=== PATIENT | male | born 1960 | race African-American/Black ===

== ENCOUNTER 2022-08-01 10:35 | Day surgery (SDC) | payer OTHER ==
[~2022-08-01] VITALS: Ht 182.9 cm; Wt 129.3 kg
[2022-08-01] MEDS ORDERED: LIDOCAINE 2% 100 MG/5 ML UJET TP ONE (11:56)
[2022-08-01] MEDS ORDERED: fentaNYL citrate 0.05 MG/ML VIAL ONE (11:56)
[2022-08-01] MEDS ORDERED: fentaNYL citrate 0.05 MG/ML VIAL IVP ONE (13:10)
== END 2022-08-01 12:57 | disposition home or self-care (01) ==
LOC: MDS 10:35 → MMU 10:36 → MDS 12:57
PROVIDERS: ATTEND Internal Medicine Gastroenterology
DX: Z12.11 Encounter for screening for malignant neoplasm of colon (principal); D12.2 Benign neoplasm of ascending colon; D12.4 Benign neoplasm of descending colon; I10 Essential (primary) hypertension; E78.5 Hyperlipidemia, unspecified; E11.9 Type 2 diabetes mellitus without complications; Z87.891 Personal history of nicotine dependence; Z20.822 Contact with and (suspected) exposure to COVID-19; Z79.84 Long term (current) use of oral hypoglycemic drugs; Z79.899 Other long term (current) drug therapy
CPT/HCPCS: 45385; 87426; J3010

== ENCOUNTER 2023-09-25 06:10 | Day surgery (SDC) | payer OTHER ==
[~2023-09-25] VITALS: Ht 182.9 cm; Wt 129.3 kg
[2023-09-25] MEDS ORDERED: fentaNYL citrate 0.05 MG/ML VIAL ONE (08:50)
[2023-09-25] MEDS ORDERED: LIDOCAINE 2% 100 MG/5 ML UJET TP ONE (08:51)
[2023-09-25] MEDS: fentaNYL citrate 0.05 MG/ML VIAL IVP ONE (09:08)
[2023-09-25] MEDS: LIDOCAINE 2% 100 MG/5 ML UJET TP ONE (09:12)
== END 2023-09-25 10:05 | disposition home or self-care (01) ==
LOC: MDS 06:10 → MMU 06:30 → MDS 10:05
PROVIDERS: ATTEND Internal Medicine Gastroenterology
DX: Z09 Encounter for follow-up examination after completed treatment for conditions other than malignant neoplasm (principal); K57.30 Diverticulosis of large intestine without perforation or abscess without bleeding; K63.5 Polyp of colon; I10 Essential (primary) hypertension; E11.9 Type 2 diabetes mellitus without complications; E66.9 Obesity, unspecified; Z68.38 Body mass index [BMI] 38.0-38.9, adult; Z98.890 Other specified postprocedural states
CPT/HCPCS: 45385; 82948; J3010